=== PATIENT | male | born 1945 | race Caucasian/White ===

== ENCOUNTER → 2018-07-27 | Outpatient (CLI) | payer MEDICARE ==
--- NOTE | 2018-07-27 17:14 | Diagnostic Imaging Report ---
EXAMINATION: CHEST 2 VIEWS COMPARISON: None FINDINGS: TUBES and LINES: None. LUNGS: Lungs are well inflated. Lungs are clear. There is no evidence of pneumonia or pulmonary edema. PLEURA: No pleural effusion or pneumothorax. HEART AND MEDIASTINUM: The cardiomediastinal silhouette is unremarkable. Atherosclerotic calcification of the aortic arch. BONES AND SOFT TISSUES: No acute osseous lesion. Soft tissues are unremarkable. UPPER ABDOMEN: No free air under the diaphragm. Surgical clips project over the upper abdomen. Atherosclerotic calcifications of the aortic arch and abdominal aorta. IMPRESSION: No acute radiographic abnormality. No evidence of pneumonia. Signed by: Dr. Jasen Sanchez MD on 07/27/2018 5:11 PM
== END ==
LOC: RAD 15:10
PROVIDERS: ATTEND Internal Medicine
DX: Z13.83 Encounter for screening for respiratory disorder NEC (principal)
CPT/HCPCS: 71046